=== PATIENT | male | born 1975 | race Caucasian/White ===

== ENCOUNTER 2017-05-08 13:49 | Emergency (ER) | payer BC, OTHER ==
[~2017-05-08] VITALS: Ht 177.8 cm; Wt 149.7 kg
--- NOTE | ~2017-05-08 | EKG ---
[place] [address] [facility] [address] ELECTROCARDIOGRAM REPORT Name: TYSHAWN GOTTLIEB [facility] [id number] Admission: 05/08/17 Attend Phys: Discharge: Date of : 79 Report #: [id number] THIS REPORT FOR: //name// ED Test Date: 2017-05-08 Test Time: 15:03:14 Pat Name: TYSHAWN GOTTLIEB Department: Room: Gender: M [employer] A Driver: SANTY : 1975 Requested By: Manuel Suarez Order Number: [id number] MD: Measurements Intervals [place] Rate: 102 P: 40 MA: 161 QRS: 27 QRSD: 83 T: -5 QT: 342 QTc: 446 Interpretive Statements Sinus tachycardia Consider RVH or posterior infarct Borderline T abnormalities, inferior leads No previous ECG available for comparison [email or web address] By: 150 150 Devin Beltran MD /EPI
[2017-05-08] MEDS ORDERED: CENTRUM SILVER1 EAC2 PO (13:55)
[2017-05-08] MEDS ORDERED: FISH OIL 1,001000 M2 PO (13:55)
[2017-05-08 14:27] LABS: ABSOLUTE NEUTROPHILS 5.3 thou/uL (1.4-8.2); BASOPHILS 0.4 % (0.0-2.0); EOSINOPHILS 0.6 % (0.0-3.0); HEMOGLOBIN 14.4 gm/dL (14.0-18.0); LYMPHOCYTES 26.9 % (24.0-44.0); MCH 30.3 pg (26.0-34.0); MCHC 34.3 g/dL (28.0-37.0); MCV 88.6 fL (80.0-100.0); MONOCYTES 7.6 % (1.0-8.0); PLATELET COUNT 175 thou/uL (150-400); POLYS 64.5 % (36.0-66.0); RBC 4.74 mil/uL (4.50-6.00); RDW 12.5 % (10.5-14.5); WBC 8.2 thou/uL (4.0-11.0)
[2017-05-08 14:36] LABS: ANION GAP 10 mmol/L (7-16); BUN 10 mg/dL (7-18); CALCIUM 8.9 mg/dL (8.5-10.1); CHLORIDE 102 mmol/L (98-107); CO2 24 mmol/L (21-32); CREATININE 1.1 mg/dL (0.7-1.3); GLUCOSE 104 mg/dL (74-106); POTASSIUM 3.4 mmol/L (3.5-5.1); SODIUM 136 mmol/L (136-145)
[2017-05-08 14:45] LABS: TROPONIN-I < 0.04 ng/mL (<0.06)
[2017-05-09] MEDS ORDERED: ATIVAN0.5 MG PO (01:47)
== END 2017-05-08 18:30 | disposition home or self-care (01) ==
LOC: ER 13:49
PROVIDERS: Nurse Practitioner
DX: R42 Dizziness and giddiness (principal)

== ENCOUNTER 2017-05-09 00:38 | Emergency (ER) | payer BC, OTHER ==
[~2017-05-09] VITALS: Ht 177.8 cm; Wt 149.7 kg
--- NOTE | ~2017-05-09 | EKG ---
[place] [address] [facility] [place] [address] ELECTROCARDIOGRAM REPORT Name: TYSHAWN GOTTLIEB [facility] [id number] Admission: 05/09/17 Attend Phys: Discharge: 05/09/17 Date of : 79 Report #: [id number] THIS REPORT FOR: //name// [facility] ED Test Date: 2017-05-09 Test Time: 00:47:43 Pat Name: TYSHAWN GOTTLIEB Department: Room: Gender: Clinical Services Specialist: MARY JO : 1975 Requested By: Denton Chin Order Number: [id number] MD: Camron Krueger Measurements Intervals [place] Rate: 87 P: 47 WA: 150 QRS: 46 QRSD: 86 T: 10 QT: 353 QTc: 425 Interpretive Statements Sinus rhythm Otherwise no significant abnormality No previous ECG available for comparison Electronically Signed On 05-09-2017 13:07:32 [employer]NET SEC[employer] SPECIALIST by Camron Krueger [email or web address] <ELECTRONICALLY SIGNED> By: Camron Krueger MD, [facility] 05/09/17 1307 0047 0047 Camron Krueger MD, FACC /EPI
[~2017-05-09 00:38] MED LIST: CENTRUM SILVER1 EAC2 PO; FISH OIL 1,001000 M2 PO
[2017-05-09 01:09] LABS: ABSOLUTE NEUTROPHILS 7.8 thou/uL (1.4-8.2); BASOPHILS 0.5 % (0.0-2.0); EOSINOPHILS 0.3 % (0.0-3.0); HEMATOCRIT 42.4 % (42.0-52.0); HEMOGLOBIN 14.7 gm/dL (14.0-18.0); LYMPHOCYTES 18.1 % (24.0-44.0); MCH 30.5 pg (26.0-34.0); MCHC 34.6 g/dL (28.0-37.0); MCV 88.1 fL (80.0-100.0); MONOCYTES 8.3 % (1.0-8.0); PLATELET COUNT 203 thou/uL (150-400); POLYS 72.8 % (36.0-66.0); RBC 4.82 mil/uL (4.50-6.00); RDW 12.6 % (10.5-14.5); WBC 10.7 thou/uL (4.0-11.0)
[2017-05-09 01:25] LABS: ANION GAP 7 mmol/L (7-16); BUN 10 mg/dL (7-18); CALCIUM 9.7 mg/dL (8.5-10.1); CHLORIDE 104 mmol/L (98-107); CO2 26 mmol/L (21-32); CREATININE 1.1 mg/dL (0.7-1.3); GLUCOSE 112 mg/dL (74-106); POTASSIUM 3.7 mmol/L (3.5-5.1); SODIUM 137 mmol/L (136-145)
[2017-05-09 01:33] LABS: ALBUMIN 4.1 g/dL (3.4-5.0); MAGNESIUM 2.2 mg/dL (1.8-2.4); SGOT 45 U/L (15-37); SGPT 85 U/L (30-65); TOTAL BILIRUBIN 1.2 mg/dL (<0.1-1.0); TOTAL PROTEIN 7.9 g/dL (6.4-8.2); TROPONIN-I < 0.04 ng/mL (<0.06)
[2017-05-09] MEDS ORDERED: ATIVAN0.5 MG PO (01:47)
== END 2017-05-09 02:05 | disposition home or self-care (01) ==
LOC: ER 00:38
PROVIDERS: Emergency Medicine
DX: R00.2 Palpitations (principal); F41.9 Anxiety disorder, unspecified; R06.83 Snoring